=== PATIENT | female | born 2000 | race Two or more races ===

== ENCOUNTER 2022-07-14 12:44 | Emergency (ER) | payer OTHER ==
[~2022-07-14] VITALS: Ht 157.5 cm; Wt 77.0 kg
[2022-07-14] MEDS ORDERED: ALBUTEROL SULF 2.5 MG/0.5ML(0.5%) NEB SOLN NEB STA (12:58)
[2022-07-14] MEDS ORDERED: IPRATROPIUM BROM 0.5 MG/2.5ML INH SOL NEB ONE ×2 (13:00→15:15)
[2022-07-14 14:21] VITALS: BP 138/79
[2022-07-14] MEDS ORDERED: ALBUTEROL SULF 2.5 MG/0.5ML(0.5%) NEB SOLN NEB ONE (15:15)
[2022-07-14] MEDS ORDERED: methylPREDNISolone SOD SUCC 125 MG/2 ML VL IM ONE (15:15)
[2022-07-14] MEDS ORDERED: ALBU108A5 IN (15:38)
[2022-07-14] MEDS ORDERED: PRED20TA2 PO (15:38)
== END 2022-07-14 15:44 | disposition home or self-care (01) ==
LOC: ER 12:44
DX: J45.901 Unspecified asthma with (acute) exacerbation (principal)
CPT/HCPCS: 94640; 96372; 99284; J2930; J7644

== ENCOUNTER 2022-07-25 00:07 | Emergency (ER) | payer OTHER ==
[~2022-07-25] VITALS: Ht 157.5 cm; Wt 81.8 kg
[~2022-07-25 00:07] MED LIST: ALBU108A5 IN; PRED20TA2 PO
[2022-07-25 00:57] VITALS: BP 142/80
[2022-07-25] MEDS ORDERED: AMOX-277 PO (02:21)
[2022-07-25] MEDS ORDERED: ACET-1158 PO (02:21)
[2022-07-25] MEDS ORDERED: cefTRIAXone SOD 1,000 MG VL IM ONE (02:30)
[2022-07-25] MEDS ORDERED: ACETAMINOPHEN 325 MG TAB PO ONE (02:30)
== END 2022-07-25 02:51 | disposition home or self-care (01) ==
LOC: ER 00:09
DX: H66.91 Otitis media, unspecified, right ear (principal); J45.909 Unspecified asthma, uncomplicated
CPT/HCPCS: 96372; 99283; J0696

== ENCOUNTER 2022-11-04 00:40 | Emergency (ER) | payer OTHER ==
[~2022-11-04] VITALS: Ht 154.9 cm; Wt 81.8 kg
[~2022-11-04 00:40] MED LIST changes: +ACET-1158 PO; +AMOX-277 PO
[2022-11-04 01:56] VITALS: BP 134/71
[2022-11-04] MEDS ORDERED: KETOROLAC TROMETH 60MG/2ML VIAL IM ONE (03:15)
[2022-11-04] MEDS ORDERED: AMOX-277 PO (03:15)
== END 2022-11-04 03:18 | disposition home or self-care (01) ==
LOC: ER 00:40
DX: H66.91 Otitis media, unspecified, right ear (principal); J45.909 Unspecified asthma, uncomplicated; Z88.1 Allergy status to other antibiotic agents
CPT/HCPCS: 96372; 99283; J1885

== ENCOUNTER 2023-07-17 05:32 | Emergency (ER) | payer OTHER ==
[~2023-07-17] VITALS: Ht 157.5 cm; Wt 86.6 kg
[~2023-07-17 05:32] MED LIST changes: -ACET-1158 PO; -AMOX-277 PO; +FERR-7 PO; -PRED20TA2 PO
[2023-07-17] MEDS ORDERED: ALBUTEROL SULF 2.5 MG/0.5ML(0.5%) NEB SOLN NEB ONE (06:00)
[2023-07-17] MEDS ORDERED: IPRATROPIUM BROM 0.5 MG/2.5ML INH SOL NEB ONE (06:00)
[2023-07-17] MEDS ORDERED: ALBUTEROL MEDNEB 2.5 mg/3ml NEB NEB ONE (06:15)
[2023-07-17 07:17] VITALS: BP 119/68; PULSE 100; RESP 14; TEMP 98; O2SAT 97
[2023-07-17] MEDS ORDERED: METH4PAK PO (07:48)
== END 2023-07-17 08:05 | disposition home or self-care (01) ==
LOC: ER 05:32
DX: J45.901 Unspecified asthma with (acute) exacerbation (principal)
CPT/HCPCS: 71045; 94640; 99283; J7644

== ENCOUNTER 2024-01-03 09:05 | Emergency (ER) | payer OTHER ==
[~2024-01-03] VITALS: Ht 157.5 cm; Wt 79.8 kg
[~2024-01-03 09:05] MED LIST changes: +METH4PAK PO
[2024-01-03 10:16] LABS: Hematocrit 43.7 % (36.0-46.0); Hemoglobin 14.4 g/dL (12.2-16.2); Mean Corpuscular Hemoglobin 29.2 pg (28.0-32.0); Mean Corpuscular Hgb Conc. 32.9 g/dL (32.0-36.0); Mean Corpuscular Volume 88.8 fL (80.0-100.0); Red Blood Cells 4.92 10^6/uL (4.0-5.20); White Blood Cell 8.9 10^3/uL (4.4-10.8)
[2024-01-03] MEDS: DICYCLOMINE HCL 10 MG CAP PO ONE (10:22)
[2024-01-03] MEDS: ONDANSETRON ODT 4 MG TAB PO ONE (10:22)
[2024-01-03 10:25] LABS: Basophils % (manual) 0 (0.0-2.0); Blast Cells 0; Eosinophils % (manual) 0 (0-7); Metamyelocytes % 0; Myelocytes % 0; Promyelocytes % 0; Reactive Lymphocytes 0
[2024-01-03 10:38] LABS: Anisocytosis Slight; Band Neutrophils % (manual) 6; Lymphocytes % (manual) 4 (10.0-50.0); Monocytes % (manual) 4 (0-12); Platelet Estimate Adequate
[2024-01-03 10:55] LABS: Urine Bacteria FEW /hpf (None Seen); Urine Blood Negative /uL (Negative); Urine Color Yellow (Yellow); Urine Mucus FEW (None Seen); Urine Protein, UAD 1+ (Negative); Urine Specific Gravity 1.043 (1.001-1.035); Urine Urobilinogen Normal (Negative); Urine WBC 5 /hpf (0 - 5)
[2024-01-03 10:56] LABS: Alanine Aminotransferase 53 U/L (7-40); Albumin 4.6 g/dL (3.2-4.8); Alkaline Phosphatase 86 U/L (46-116); Anion Gap 9 (5-15); Aspartate Aminotransferase 34 U/L (13-40); BUN/Creatinine Ratio 9.7 (10.0-20.0); Bilirubin, Total 0.5 mg/dL (0.2-1.0); Blood Urea Nitrogen 6 mg/dL (9-23); Calcium 9.9 mg/dL (8.5-10.1); Carbon Dioxide 23 mmol/L (20-30); Chloride 107 mmol/L (98-107); Glucose 93 mg/dL (74-106); Potassium 3.7 mmol/L (3.5-5.1); Sodium 139 mmol/L (136-145); Total Protein 7.3 g/dL (5.7-8.2)
[2024-01-03 11:00] LABS: Urine Clarity Hazy (Clear)
[2024-01-03 11:15] LABS: Lipase 49 U/L (12-53)
[2024-01-03] MEDS ORDERED: ZOFR4T PO (11:26)
[2024-01-03] MEDS: SODIUM CHLORIDE 0.9% 1,000 ML IV ONE (11:30)
[2024-01-03 12:34] VITALS: BP 109/64; PULSE 77; RESP 18; TEMP 98; O2SAT 99
== END 2024-01-03 11:45 | disposition admitted as inpatient to this hospital (09) ==
LOC: ER 09:05
DX: O21.0 Mild hyperemesis gravidarum (principal); R10.2 Pelvic and perineal pain; K52.9 Noninfective gastroenteritis and colitis, unspecified; J45.909 Unspecified asthma, uncomplicated; Z3A.17 17 weeks gestation of pregnancy
CPT/HCPCS: 36415; 76805; 80053; 81001; 83690; 84702; 85007; 85027; 96360; 99284; J0500; J7030; Q0162

== ENCOUNTER 2024-08-29 21:45 | Emergency (ER) | payer MEDICAID, OTHER ==
[~2024-08-29] VITALS: Ht 154.9 cm; Wt 80.2 kg
[~2024-08-29 21:45] MED LIST changes: +ZOFR4T PO
[2024-08-29] MEDS: IPRATROPIUM BROM 0.5 MG/2.5ML INH SOL NEB ONE (22:17)
[2024-08-29] MEDS: ALBUTEROL SULF 2.5 MG/0.5ML(0.5%) NEB SOLN NEB ONE (22:17)
[2024-08-29] MEDS: DexAMETHasone SOD PHOS 10MG/1ML VIAL INJ IM ONE (22:20)
--- NOTE | 2024-08-29 22:20 | DVH ---
CHEST RADIOGRAPH Indication: Shortness a breath Technique: Single frontal view of the chest was obtained Comparison: XY CHEST PORTABLE on DOS: 07/17/23 FINDINGS: Lines and Tubes: None Lungs: Left perihilar infiltrate Pleura: No effusion. No pneumothorax. Cardiomediastinal contours: Unremarkable Bones: No acute osseous abnormality. IMPRESSION: 1. Questionable left perihilar infiltrate consider follow-up or CT chest.
[2024-08-30] MEDS: AZITHROMYCIN 250 MG TAB PO ONE (00:11)
[2024-08-30 00:15] VITALS: BP 96/63; PULSE 96; RESP 16; TEMP 98.6; O2SAT 100
[2024-08-30] MEDS ORDERED: AZIT-185 PO (00:33)
[2024-08-30] MEDS ORDERED: ALBU108A5 IN (00:33)
--- NOTE | 2024-08-30 00:34 | ED.PDOC ---
SOB-HPI HPI Comments This patient is a pleasant but obese 23-year-old female who arrives the ED today for evaluation of shortness a breath and generalized chest pain concerns for the past two days. Patient patient has a history of albuterol and has been using her rescue inhaler, but states it has been ineffective. Patient states she has been having some coughing events with phlegm. Patient denies any fever nausea or vomiting. Vital signs were stable on arrival. 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 MANAGER Hx Family History Family History: Reviewed,noncontributory to illness Social History Smoker: Non-Smoker Alcohol: Denies ETOH Use Drugs: Denies Drug Use Lives In: Home Constitutional: denies: chills, diaphoresis, fatigue, fever, malaise, sweats, weakness, others EENTM: denies: blurred vision, double vision, ear bleeding, ear discharge, ear drainage, ear pain, ear ringing, eye pain, eye redness, hearing loss, mouth pain, mouth swelling, nasal discharge, nose bleeding, nose congestion, nose pain, photophobia, tearing, throat pain, throat swelling, voice changes, others Respiratory: reports: cough, SOB at rest; denies: hemoptysis, orthopnea, shortness of breath, SOB with excertion, stridor, wheezing, others Cardiovascular: denies: chest pain, dizzy spells, diaphoresis, Dyspnea on exertion, edema, irregular heart beat, left arm pain, lightheadedness, palpitations, PND, syncope, others Gastrointestinal: denies: abdomen distended, abdominal pain, blood streaked bowels, constipated, diarrhea, dysphagia, difficulty swallowing, hematemesis, melena, nausea, poor appetite, poor fluid intake, rectal bleeding, rectal pain, vomiting, others Genitourinary: denies: abnormal vagina bleeding, burning, dyspareunia, dysuria, flank pain, frequency, hematuria, incontinence, pain, , vagina discharge, urgency, others Neurological: denies: dizziness, fainting, headache, left sided numbness, left sided weakness, numbness, paresthesia, pre-existing deficit, right sided numbness, right sided weakness, seizure, speech problems, tingling, tremors, weakness, others Musculoskeletal: denies: back pain, gout, joint pain, joint swelling, muscle pain, muscle stiffness, neck pain, others Integumetry: denies: bruises, change in color, change in hair/nails, dryness, laceration, lesions, lumps, rash, wounds, others Allergic/Immunocompromised: denies: Difficulty Healing, Frequent Infections, Hives, Itching, others Hematologic/Lymphatic: denies: anemia, blood clots, easy bleeding, easy bruising, swollen glands, others Endocrine: denies: excessive hunger, excessive sweating, excessive thirst, excessive urination, flushing, intolerance to cold, intolerance to heat, unexplained weight gain, unexplained weight loss, others Psychiatric: denies: anxiety, bipolar disorder, depression, hopeless, panic dis order, schizophrenia, sleepless, suicidal, others Physical Exam General Appearance: Moderate Distress (Moderate distress due to some shortness of breath concerns.), Obese HEENT: Normal ENT Inspection, Pharynx Normal, TMs Normal Neck: Full Range of Motion, Non-Tender, Normal, Normal Inspection Respiratory: Other (Patchy wheezing appreciated in right middle lobe with rhonchi in right middle and right upper lobe.) Cardiovascular: No Edema, No JVD, No Murmur, No Gallop, Normal Peripheral Pulses, Regular Rate/Rhythm Breast Exam: Deferred Gastrointestinal: No Organomegaly, Non Tender, No Pulsatile Mass, Normal Bowel Sounds, Soft Genitalia: Deferred Pelvic: Deferred Rectal: Deferred Extremities: No calf tenderness, Normal capillary refill, Normal inspection, Normal range of motion, Non-tender, No pedal edema Neurologic: Alert, No Motor Deficits, Normal Affect, Normal Mood, No Sensory Deficits Cerebellar Function: Normal Reflexes: Normal Skin: Dry, Normal Color, Warm Lymphatic: No Adenopathy Was a procedure done? Was a procedure done?: No Differential Dx Differential Diagnosis: Asthma, Bronchitis, Pneumonia, URI X-Ray, Labs, Meds, VS Vital Signs Date Time Temp Pulse Resp B/P (MAP) Pulse Ox O2 Delivery O2 Flow Rate FiO2 08/30/24 00:15 96 16 100 Room Air 08/30/24 00:15 98.6 96 16 96/63 (74) 100 98.6 08/29/24 22:20 93 Room Air* 0 21 08/29/24 22:20 16 93 Room Air* 0 21 08/29/24 21:59 98.8 101 20 117/75 (89) 96 Current Medications Medications (Trade) Dose Ordered Sig/Norman Route Start Time Stop Time Status Last Admin Albuterol (Ventolin Medneb) 5 mg ONCE ONCE NEB 08/29/24 22:15 08/29/24 22:16 DC 08/29/24 22:17 Ipratropium [place] (Atrovent Medneb) 0.5 mg ONCE ONCE NEB 08/29/24 22:15 08/29/24 22:16 DC 08/29/24 22:17 Dexamethasone Sodium Phosphate (Decadron Injection) 10 mg ONCE ONCE IM 08/29/24 22:15 08/29/24 22:16 DC 08/29/24 22:20 Azithromycin (Zithromax Tablet) 500 mg ONCE ONCE PO 08/29/24 22:45 08/29/24 22:46 DC 08/30/24 00:11 X-Ray, Labs, Meds, VS Comment All studies performed the ED were evaluated by me personally. Imaging studies revealed a consolidation which may be indicative of pneumonia. Patient was given her 1st dose of antibiotics prior to discharge. Patient had good relief of symptoms status post medication dispensed. Advised patient utilize antibiotics as directed until completion as well as additional medication as needed. Time of 1ST Reevaluation: 00:31 Reevaluation 1ST: Improved Consultation: PCP Patient Education/Counseling: Diagnosis, Treatment Family Education/Counseling: Diagnosis, Treatment Departure 1 Departure Time of Disposition: 00:32 Impression: Primary Impression: Pneumonia Additional Impression: Acute asthma exacerbation Disposition: 01 HOME / SELF CARE / HOMELESS Condition: Stable Additional Instructions: Advised patient utilize antibiotics as directed until completion as well as additional medication as needed. e-Prescriptions Albuterol Sulfate (Albuterol Sulfate Hfa) 108 Mcg/Act Aer 108 MCG IN Q4HP PRN, #1 AER Prov: LUCIEN MOLINA PAC 08/30/24 Azithromycin (ZITHROMAX TABLET) 250 Mg Tb 250 MG PO DAILY for 4 Days, #4 TAB Prov: LUCIEN MOLINA PAC 08/30/24 Discharged With: Self, Friend Critical Care Note Critical Care Time?: No Stability Stability form required: No Heart Score Heart Score: Heart Score Response (Comments) Value History N/A 0 EKG N/A 0 Age N/A 0 Risk Factors N/A 0 Troponin N/A 0 Total 0 LUCIEN MOLINA PAC Aug 30, 2024 00:34
== END 2024-08-30 01:00 | disposition home or self-care (01) ==
LOC: ER 21:45
DX: J18.9 Pneumonia, unspecified organism (principal); J45.901 Unspecified asthma with (acute) exacerbation
CPT/HCPCS: 71045; 94640; 96372; 99283; J1100

== ENCOUNTER 2024-09-19 22:37 | Emergency (ER) | payer MEDICAID ==
[~2024-09-19] VITALS: Ht 154.9 cm; Wt 79.8 kg
[~2024-09-19 22:37] MED LIST changes: +AZIT-185 PO
--- NOTE | 2024-09-19 23:03 | ED.PDOC ---
SOB-HPI HPI Comments 23-year-old female Came to ER for shortness of breath. Patient has history of asthma, states few hours ago she started developing productive cough, progressively worsening, later associated with shortness of breath and wheezing. Inhalers taken offered no relief. Patient is saturating 91% on room air upon arrival Chief Complaint: Asthma Time Seen by MD: 23:03 Primary Care Provider: Unknown Reviewed notes: Nurses Notes Information Source: Patient Mode of Arrival: Ambulatory Severity: Moderate Timing: Hours Duration: Since onset Context: At Rest, With Light Exertion PE Risk Factors: None History of: Asthma Prehospital treatment: Treatment Modifying Factors: Nothing Associated Signs and Symptoms: Wheeze, Cough Quality: Tightness Radiation: No Radiation Location: Chest (R), Chest (L) If cough with SOB: Productive Past Medical History PAST MEDICAL HISTORY: Asthma Surgical History: Denies all surgeries LIBRARY CLERICAL ASSISTANT History: Denies all LIBRARY CLERICAL ASSISTANT Hx Family History Family History: Reviewed,noncontributory to illness Social History Smoker: Non-Smoker Alcohol: Denies ETOH Use Drugs: Denies Drug Use Lives In: Home Constitutional: denies: chills, diaphoresis, fatigue, fever, malaise, sweats, weakness, others EENTM: denies: blurred vision, double vision, ear bleeding, ear discharge, ear drainage, ear pain, ear ringing, eye pain, eye redness, hearing loss, mouth pain, mouth swelling, nasal discharge, nose bleeding, nose congestion, nose pain, photophobia, tearing, throat pain, throat swelling, voice changes, others Respiratory: reports: cough, SOB at rest, shortness of breath, wheezing; denies: hemoptysis, orthopnea, SOB with excertion, stridor, others Cardiovascular: denies: chest pain, dizzy spells, diaphoresis, Dyspnea on exertion, edema, irregular heart beat, left arm pain, lightheadedness, palpitations, PND, syncope, others Gastrointestinal: denies: abdomen distended, abdominal pain, blood streaked bowels, constipated, diarrhea, dysphagia, difficulty swallowing, hematemesis, melena, nausea, poor appetite, poor fluid intake, rectal bleeding, rectal pain, vomiting, others Genitourinary: denies: abnormal vagina bleeding, burning, dyspareunia, dysuria, flank pain, frequency, hematuria, incontinence, pain, , vagina discharge, urgency, others Neurological: denies: dizziness, fainting, headache, left sided numbness, left sided weakness, numbness, paresthesia, pre-existing deficit, right sided numbness, right sided weakness, seizure, speech problems, tingling, tremors, weakness, others Musculoskeletal: denies: back pain, gout, joint pain, joint swelling, muscle pain, muscle stiffness, neck pain, others Integumetry: denies: bruises, change in color, change in hair/nails, dryness, laceration, lesions, lumps, rash, wounds, others Allergic/Immunocompromised: denies: Difficulty Healing, Frequent Infections, Hives, Itching, others Hematologic/Lymphatic: denies: anemia, blood clots, easy bleeding, easy bruising, swollen glands, others Endocrine: denies: excessive hunger, excessive sweating, excessive thirst, excessive urination, flushing, intolerance to cold, intolerance to heat, unexplained weight gain, unexplained weight loss, others Psychiatric: denies: anxiety, bipolar disorder, depression, hopeless, panic disorder, schizophrenia, sleepless, suicidal, others Physical Exam General Appearance: Mild Distress, Normal HEENT: Normal ENT Inspection, Pharynx Normal, TMs Normal Neck: Full Range of Motion, Non-Tender, Normal, Normal Inspection Respiratory: Chest Non-Tender, No Accessory Muscle Use, Respiratory Distress, Wheezing Cardiovascular: No Edema, No JVD, No Murmur, No Gallop, Normal Peripheral Pulses, Regular Rate/Rhythm Breast Exam: Deferred Gastrointestinal: No Organomegaly, Non Tender, No Pulsatile Mass, Normal Bowel Sounds, Soft Genitalia: Deferred Pelvic: Deferred Rectal: Deferred Extremities: No calf tenderness, Normal capillary refill, Normal inspection, Normal range of motion, Non-tender, No pedal edema Musculoskeletal : Apperance: Normal Neurologic: Alert, wirer helper II-XII nml as Tested, No Motor Deficits, Normal Affect, Normal Mood, No Sensory Deficits Cerebellar Function: Normal Reflexes: Normal Skin: Dry, Normal Color, Warm Lymphatic: No Adenopathy Was a procedure done? Was a procedure done?: No Differential Dx Differential Diagnosis: Asthma, Bronchitis, COPD, Pneumonia, Respiratory Distress, URI X-Ray, Labs, Meds, VS Vital Signs Date Time Temp Pulse Resp B/P (MAP) Pulse Ox O2 Delivery O2 Flow Rate FiO2 09/19/24 23:25 98.6 100 18 121/72 (88) 97 98.6 09/19/24 23:25 100 18 97 Room Air 09/19/24 23:13 14 93 Room Air* 0 21 09/19/24 22:49 22 93 Room Air* 0 21 09/19/24 22:49 98.2 88 22 143/84 (103) 93 Current Medications Medications (Trade) Dose Ordered Sig/Norman Route Start Time Stop Time Status Last Admin Albuterol (Ventolin Medneb) 5 mg ONCE ONCE NEB 09/19/24 23:00 09/19/24 23:01 DC 09/19/24 23:10 Ipratropium [place] (Atrovent Medneb) 0.5 mg ONCE ONCE NEB 09/19/24 23:00 09/19/24 23:01 DC 09/19/24 23:10 Prednisone 40 mg ONCE ONCE PO 09/19/24 23:00 09/19/24 23:01 DC 09/19/24 23:17 Time of 1ST Reevaluation: 23:00 Reevaluation 1ST: Unchanged Patient Education/Counseling: Diagnosis, Treatment Family Education/Counseling: No Family Present Departure 1 Departure Time of Disposition: 01:53 (Patient presenting with likely asthma exacerbation. We will discharge patient home with outpatient follow up) Impression: Primary Impression: Acute asthma Disposition: HOME / SELF CARE / HOMELESS Condition: Stable Additional Instructions: You likely had an Athma exacerbation. You should use your inhaler as directed. Your prescribed steroids. Please take as directed. It is important to follow up with the regular doctor within 1 week. If your symptoms worsen or you have any other concerns please return to the emergency room. e-Prescriptions Prednisone (Prednisone) 20 Mg Tab 40 MG PO DAILY for 5 Days, #10 MG Prov: FRED PACHECO MD 09/20/24 Discharged With: Self Critical Care Note Critical Care Time?: Yes (35 min-critical care time only) Critical care comment: Shortness of breath Stability Stability form required: No Heart Score Heart Score: Heart Score Response (Comments) Value History N/A 0 EKG N/A 0 Age N/A 0 Risk Factors N/A 0 Troponin N/A 0 Total 0 I personally scribed for FRED PACHECO MD ([email or web address]) on 09/19/24 at 23:03. Electronically submitted by Torey Lewis ([email or web address]). FRED PACHECO MD Sep 19, 2024 23:03
[2024-09-19] MEDS: ALBUTEROL SULF 2.5 MG/0.5ML(0.5%) NEB SOLN NEB ONE (23:10)
[2024-09-19] MEDS: IPRATROPIUM BROM 0.5 MG/2.5ML INH SOL NEB ONE (23:10)
[2024-09-19] MEDS: predniSONE 20 MG TAB PO ONE (23:17)
[2024-09-19 23:25] VITALS: TEMP 98.6
--- NOTE | 2024-09-20 00:40 | DVH ---
EXAM: XY CHEST TWO VIEWS ROUTINE CLINICAL HISTORY: sob TECHNIQUE: Frontal and lateral views of the chest WID: COMPARISON: None FINDINGS: Lines and tubes: None Chest: The heart size and pulmonary vasculature is within normal limits. No pleural effusion, pneumothorax, or consolidation. The osseous structures are grossly intact. IMPRESSION: No acute cardiopulmonary abnormality.
[2024-09-20] MEDS ORDERED: PRED20TA2 PO (01:54)
[2024-09-20 03:43] VITALS: BP 123/71; PULSE 72; RESP 18; O2SAT 97
== END 2024-09-20 03:45 | disposition home or self-care (01) ==
LOC: ER 22:37
DX: J45.909 Unspecified asthma, uncomplicated (principal); R05.9 Cough, unspecified
CPT/HCPCS: 71046; 94640; 99283; J7512